=== PATIENT | female | born 1960 | race Caucasian/White ===

== ENCOUNTER 2016-06-23 23:09 | Inpatient (IN) | payer OTHER ==
[~2016-06-23] VITALS: Ht 124.5 cm; Wt 70.5 kg
[~2016-06-23 23:09] MED LIST: ACETAMINOPHEN325 M1 PO; ADULT LOW DOSE81 M1 PO; ADVAIR 250/501 DISK IH; ALTOPREV40 MG PO; AMLODIPINE BESY10 MG PO; APLISOL5 TUB UNIT ID; APRESOLINE100 MG PO; APRESOLINE50 MG PO; ASCORBIC ACID500 M3 PO; ASCORBIC ACID500 MG PO; ASPERCREME TP; ASPIR-LOW81 MG PO; ASPIRIN E.C.81 M1 PO; AUGMENTIN875 MG PO; AYR BABY SALINE30 ML BOTH NARES; AYR SALINE NA14.1 GM BOTH NARES; AYR50 ML BOTH NARES; AZITHROMYCIN250 MG1 PO; Apresoline PO; BACTRIM,SEPT1 TABLET PO; BISAC-EVAC10 MG PR; BUMETANIDE1 MG PO; BYSTOLIC10 MG PO; BYSTOLIC20 MG PO; BYSTOLIC5 MG PO; C COMPLEX500 MG PO; CALCITRIOL0.25 MCG PO; CALCIUM ACETAT667 MG PO; CARDURA4 MG PO; CARDURA8 MG PO; CATAPRES0.2 MG PO; CLINDAMYCIN HC300 MG PO; CLONIDINE HCL0.1 MG PO; CLONIDINE HCL0.2 MG PO; CLONIDINE HCL0.3 MG PO; CLONIDINE1 EAC1 TD; CLOPIDOGREL75 MG PO; COLACE100 MG PO; COLISTIMETHATE IV; COREG25 M1 PO; CRANBERRY405 MG PO; CUBICIN500 MG/10 IV; Cardura PO; Catapres PO; Coreg PO; DELTASONE20 M1 PO; DELTASONE20 MG PO; DIOVAN PO; DIOVAN160 MG PO; DIOVAN320 MG PO; DIOVAN80 MG PO; DITROPAN XL10 MG PO; DITROPAN XL5 MG PO; DITROPAN5 MG PO; DOCUSATE SODIU100 MG PO; DORIBAX250 MG IV; DOXAZOSIN MESYLA4 MG PO; DOXAZOSIN MESYLA8 MG PO; DOXYCYCLINE HY100 M3 PO; DOXYCYCLINE HY100 MG PO; DULCOLAX10 MG PR; DULERA 100 MCG/13 GM IH; DUONEB 2.5-0.5 M3 ML AEROSOL; DUONEB 2.5-0.5 M3 ML PEP; DURAGESIC50 MCG TD; Dilaudid PO; ENEMA133 M2 PR; EPOGEN,PRO4000 UNITS IV; ESOMEPRAZOLE MA40 MG PO; FENTANYL1 EAC1 TD; FENTANYL1 EAC5 TD; FLEET ENEMA-AD118 ML PR; FLEET MINERAL133 ML PR; FLORASTOR250 MG PO; FOLIC ACID1 MG PO; FULL SPECTRUM0.8 MG PO; FUROSEMIDE20 MG PO; FUROSEMIDE40 MG PO; FUROSEMIDE80 MG PO; GABAPENTIN300 MG PO; GLIPIZIDE10 M1 PO; GLUCAGON1 MG IM; GLUTOSE 1537.5 GM PO; Glucotrol PO; HEPARIN SO1000 UNIT1 INTRA-CATH; HEPARIN SO1000 UNIT1 IV; HEPARIN SO5000 UNITS SC; HUMULIN 50100 UNIT/1 SQ; HUMULIN N100 UNITS/ SC; HUMULIN N300 UNIT/3 SC; HUMULIN NP100 UNIT/1 SC; HYDRALAZINE HC100 MG PO; HYDRALAZINE HCL50 MG PO; INSULIN; Imdur PO; JANUVIA25 MG PO; KIONEX15 GM/60 M PO; LASIX40 MG PO; LASIX80 MG PO; LEVEMIR FL100 UNIT/1 SC; LEVEMIR100 UNIT/2 SC; LEVOFLOXACIN500 MG PO; LEXAPRO10 MG PO; LIDOCAINE700 MG TD; LINEZOLID-600 MG/300 IV; LINEZOLID600 MG PO; LIPITOR10 MG PO; LOPID600 MG PO; LOTREL 5/201 CAPSULE PO; LOVASTATIN40 MG PO; Levaquin PO; Lopid PO; MERREM500 MG IV; METRONIDAZOLE500 MG PO; MEVACOR40 MG PO; MIDODRINE HCL10 MG PO; MILK OF MAGN PO; MINITRAN1 EACH TD; MINOXIDIL10 MG PO; MIRALAX17 GM PO; MIRALAX255 GM PO; NEPHRO-VITE RX1 EACH PO; NEPHRO-VITE,1 TABLET PO; NEPHROCAPS SOFTG1 MG PO; NEURONTIN100 MG PO; NEURONTIN300 MG PO; NEXIUM40 MG PO; NITRO-DUR1 EAC1 TD; NITROGLYCERIN1 EAC1 TD; NORVASC10 MG PO; NOVOLIN N100 UNITS/ SC; NOVOLOG 10100 UNITS/ SC; NOVOLOG PE100 UNITS/ SC; Norvasc PO; OMEPRAZOLE40 M1 PO; ONDANSETRON HCL4 MG PO; ONDANSETRON4 MG/2 ML IV; OXYBUTYNIN CHLOR5 M1 PO; OXYCODONE HCL5 MG PO; OXYCODONE-ACET1 EACH PO; Omnicef PO; PANTOPRAZOLE SO40 MG PO; PLAVIX PO; PLAVIX75 MG PO; POLYETHYLENE GL17 GM PO; PRAVACHOL40 MG PO; PRAVASTATIN SOD40 MG PO; PREDNISONE10 MG PO; PREDNISONE20 MG PO; PREDNISONE5 MG PO; PROAIR HFA8.5 GM IH; PROCRIT10000 UNI1 IV; PROTONIX40 MG PO; RELADOR PAK PL1 EACH TP; RENAGEL800 MG PO; RENO CAPS SOFTGE1 MG PO; RENVELA2.4 GM PO; RENVELA800 MG PO; ROXICET 5-3251 EACH PO; ROXICODONE5 MG PO; Remove Lidoderm Patch TD; Rocaltrol PO; SALINE MIST45 ML BOTH NARES; SALINE NOSE SPR45 M1 BOTH NARES; SANTYL30 GM TP; SENEXON8.6 MG PO; SENNA LAX8.6 MG PO; SENNA LAXATIVE8.6 MG PO; SENNA S TABLET1 EACH PO; SENNA8.6 MG PO; SERTRALINE HCL50 MG PO; SINUS RELIEF15 ML BOTH NARES; SPIRIVA RESPIMAT4 GM IH; SPIRIVA1 INHALATI IH; SPIRONOLACTONE25 MG PO; Sodium Bicarbonate PO; TRADJENTA5 MG PO; TRAMADOL HCL50 MG PO; TYLENOL ARTHRI650 MG PO; TYLENOL REGULA325 MG PO; Tessalon Perle PO; VALSARTAN160 MG PO; VANICREAM113 GM TP; VENOFER100 MG/5 M IV; VIT D; VITAMIN C500 M1 PO; VITAMIN D-32000 UNI2 PO; VITAMIN D2000 INTUN PO; VITAMIN D2000 UNIT PO; VITAMIN D32000 UNI1 PO; VITAMIN D32000 UNIT PO; Vibramycin, Doryx PO; ZINC SULFATE220 M1 PO; ZYVOX600 MG PO; proair; proair hfa
[2016-06-24 00:29] LABS: INTER. NORMALIZED RATIO 1.1; PROTHROMBIN TIME 10.8 (9.2-11.2); PTT 25.7 (25-32)
[2016-06-24 00:31] LABS: EOSINOPHIL (%) 0.4 % (0-5); EOSINOPHIL COUNT 0.1 K/uL (0-0.3); HEMATOCRIT 37.7 % (36.0-46.0); IMMATURE GRANULOCYTE (%) 0.2 % (0.0-0.7); IMMATURE GRANULOCYTE COUNT 0.5 K/uL; LYMPHOCYTE COUNT 0.6 K/uL (1.0-2.8); MCH 29.3 PG (29.0-34.0); MCV 94.5 FL (83-99); MEAN PLAT.VOLUME 9.1 uM^3 (9.5-12.4); MONOCYTE COUNT 0.9 K/uL (0-0.8); NEUTROPHIL (%) 92.5 % (45-76); NEUTROPHIL COUNT 19.7 K/uL (1.8-6.4); PLATELET COUNT 246 K/uL (156-360); RBC DIS.WIDTH-SD 56.1 % (39-53); RED BLOOD COUNT 3.99 M/uL (3.80-5.20)
[2016-06-24 00:32] LABS: WHITE BLOOD COUNT 21.3 K/uL (4.1-10.2)
[2016-06-24 00:34] LABS: CHLORIDE 97 mEq/L (99-109); POTASSIUM 3.8 mEq/L (3.7-5.4); SODIUM 138 mEq/L (136-147)
[2016-06-24 00:36] LABS: GLUCOSE 206 mg/dL (70-99)
[2016-06-24 00:37] LABS: ANION GAP 17 MEQ/L (2-14)
[2016-06-24 00:37] LABS: BASE EXCESS 1.2 mEq/L (-3 to +3); COMMENTS - BLOOD GASES C+A+; METHEMOGLOBIN 0.9 % (0-1.5); O2 FLOW 25 L/MIN; PCO2 41 mm Hg (35-45); PO2 58 mm Hg (80-100); SITE RR; pH 7.41 (7.35-7.45)
[2016-06-24 00:38] LABS: TOTAL BILIRUBIN 0.5 mg/dL (0.0-1.0)
[2016-06-24 00:38] LABS: DEVICE HHFNC; FI02 50 %; TOTAL RESP RATE 20 resp/min
[2016-06-24 00:39] LABS: ALKALINE PHOSPHATASE 73 IU/L (3-129)
[2016-06-24 00:40] LABS: GFR ESTIMATE (CALCULATED) 13 mL/min/
[2016-06-24 00:41] LABS: TROP-I INTERPRETATION NEGATIVE; UREA NITROGEN (BUN) 44 mg/dL (9-23)
[2016-06-24 00:43] LABS: LIPASE 11 U/L (1.0-51.0)
[2016-06-24 03:03] VITALS: BP 151/66
[2016-06-24 09:00] VITALS: BP 134/40
[2016-06-24 11:21] LABS: POINT-OF-CARE METER ID UU14174216
[2016-06-24] MEDS ORDERED: LEVEMIR FL100 UNIT/1 SC (11:35)
[2016-06-24] MEDS ORDERED: PRILOSEC20 MG PO (11:38)
[2016-06-24] MEDS ORDERED: FLEET MINERAL133 ML PR (11:49)
[2016-06-24] MEDS ORDERED: NORCO 5/3251 TABLET PO (11:50)
[2016-06-24] MEDS ORDERED: ROBITUSSIN DM118 ML PO (11:51)
[2016-06-24 12:00] VITALS: BP 117/32
[2016-06-24 15:54] VITALS: BP 117/30
[2016-06-24 17:08] LABS: POINT-OF-CARE METER ID UU14174216
[2016-06-24 19:57] VITALS: BP 135/56
[2016-06-24 23:45] VITALS: BP 134/54
[2016-06-25 04:13] VITALS: BP 134/52
[2016-06-25 08:08] LABS: EOSINOPHIL COUNT 0.2 K/uL (0-0.3); HEMATOCRIT 30.8 % (36.0-46.0); IMMATURE GRANULOCYTE (%) 0.2 % (0.0-0.7); LYMPHOCYTE COUNT 1.3 K/uL (1.0-2.8); MCH 29.5 PG (29.0-34.0); MCHC 30.8 G/DL (30.0-36.0); MCV 95.7 FL (83-99); MONOCYTE (%) 3.9 % (3-12); MONOCYTE COUNT 0.3 K/uL (0-0.8); NEUTROPHIL (%) 78.1 % (45-76); NEUTROPHIL COUNT 6.3 K/uL (1.8-6.4); RBC DIS.WIDTH-CV 17.6 % (11.8-14.6); RBC DIS.WIDTH-SD 61.7 % (39-53); RED BLOOD COUNT 3.22 M/uL (3.80-5.20)
[2016-06-25 08:09] LABS: WHITE BLOOD COUNT 8.1 K/uL (4.1-10.2)
[2016-06-25 08:11] LABS: POINT-OF-CARE USER ID ENVKC36
[2016-06-25 08:11] LABS: ANION GAP 17 MEQ/L (2-14); CHLORIDE 95 MEQ/L (99-109); POTASSIUM 3.9 MEQ/L (3.7-5.4); SAMPLE HEMOLYSIS CHECK 0; SAMPLE ICTERIC CHECK 0; SAMPLE LIPEMIA CHECK 0; SODIUM 137 MEQ/L (136-147)
[2016-06-25 08:17] LABS: GFR ESTIMATE (CALCULATED) 9 mL/min/; GLUCOSE 217 mg/dL (70-99); UREA NITROGEN (BUN) 62 mg/dL (9-23)
[2016-06-25 09:59] LABS: PLAT.SUFFICIENCY ADEQUATE; PLATELET COUNT UNABLE TO REPORT K/uL (156-360)
[2016-06-25 11:35] VITALS: BP 129/32
[2016-06-25 12:02] LABS: POINT-OF-CARE METER ID UU13113781; POINT-OF-CARE USER ID ENVKC36
[2016-06-25 16:11] VITALS: BP 125/32
[2016-06-25 16:37] LABS: POINT-OF-CARE USER ID ENVKC36
[2016-06-25 19:20] VITALS: BP 142/40
[2016-06-26 00:27] VITALS: BP 133/863
[2016-06-26 03:50] VITALS: BP 130/40
[2016-06-26 08:17] LABS: POINT-OF-CARE USER ID ENVKC36
[2016-06-26] MEDS ORDERED: GENTAMICIN40 MG/1 ML IV (08:22)
[2016-06-26] MEDS ORDERED: LINEZOLID600 MG PO (08:22)
[2016-06-26 08:40] VITALS: BP 152/40
== END 2016-06-26 11:45 | DRG 193 ==
LOC: EME → EDBD 23:09 → EME 23:09 → EDOF 06-24 01:04 → 4EAST 06-24 01:04
PROVIDERS: Emergency Medicine; Internal Medicine; Internal Medicine Nephrology
DX: J18.9 Pneumonia, unspecified organism (principal); N18.6 End stage renal disease; I12.0 Hypertensive chronic kidney disease with stage 5 chronic kidney disease or end stage renal disease; I50.30 Unspecified diastolic (congestive) heart failure; J44.1 Chronic obstructive pulmonary disease with (acute) exacerbation; I42.9 Cardiomyopathy, unspecified; G82.20 Paraplegia, unspecified; L89.159 Pressure ulcer of sacral region, unspecified stage; E11.65 Type 2 diabetes mellitus with hyperglycemia; D72.829 Elevated white blood cell count, unspecified; I73.9 Peripheral vascular disease, unspecified; F17.210 Nicotine dependence, cigarettes, uncomplicated; D63.1 Anemia in chronic kidney disease; K21.9 Gastro-esophageal reflux disease without esophagitis; Z89.612 Acquired absence of left leg above knee; Z89.611 Acquired absence of right leg above knee; Z90.49 Acquired absence of other specified parts of digestive tract; E83.39 Other disorders of phosphorus metabolism; Z79.01 Long term (current) use of anticoagulants
CPT/HCPCS: 36600; 71010; 80053; 80069; 80170; 81003; 82803; 82948; 83605; 83690; 84484; 85025; 85027; 85610; 85730; 87040; 93005; 94640; 94640 76; 94799; 99202; 99281; 99285; J1580; J1644; J1815; J2020; J2185; J7050

== ENCOUNTER 2016-07-14 20:33 | Inpatient (IN) | payer OTHER ==
[~2016-07-14] VITALS: Ht 121.9 cm; Wt 68.9 kg
[~2016-07-14 20:33] MED LIST changes: +GENTAMICIN40 MG/1 ML IV; +NORCO 5/3251 TABLET PO; +PRILOSEC20 MG PO; +ROBITUSSIN DM118 ML PO
[2016-07-14 21:59] LABS: EOSINOPHIL COUNT 0.1 K/uL (0-0.3); HEMATOCRIT 36.3 % (36.0-46.0); LYMPHOCYTE COUNT 1.2 K/uL (1.0-2.8); MCH 30.8 PG (29.0-34.0); MCHC 32.2 G/DL (30.0-36.0); MCV 95.5 FL (83-99); MEAN PLAT.VOLUME 8.6 uM^3 (9.5-12.4); MONOCYTE (%) 3.7 % (3-12); MONOCYTE COUNT 0.5 K/uL (0-0.8); NEUTROPHIL (%) 85.3 % (45-76); NEUTROPHIL COUNT 10.6 K/uL (1.8-6.4); PLATELET COUNT 211 K/uL (156-360); RBC DIS.WIDTH-CV 17.9 % (11.8-14.6); WHITE BLOOD COUNT 12.4 K/uL (4.1-10.2)
[2016-07-14 22:06] LABS: CHLORIDE 95 mEq/L (99-109); POTASSIUM 3.9 mEq/L (3.7-5.4); SODIUM 139 mEq/L (136-147)
[2016-07-14 22:08] LABS: GLUCOSE 180 mg/dL (70-99)
[2016-07-14 22:09] LABS: ANION GAP 15 MEQ/L (2-14)
[2016-07-14 22:12] LABS: GFR ESTIMATE (CALCULATED) 13 mL/min/; UREA NITROGEN (BUN) 39 mg/dL (9-23)
[2016-07-14 22:22] LABS: INFLUENZA A VIRAL ANTIGEN NEGATIVE; INFLUENZA B VIRAL ANTIGEN NEGATIVE
[2016-07-14] MEDS ORDERED: AYR50 ML BOTH NARES (23:38)
[2016-07-14] MEDS ORDERED: BENADRYL ITCH28.3 GM TP (23:39)
[2016-07-15 02:44] VITALS: BP 143/63
[2016-07-15 07:45] VITALS: BP 163/13
[2016-07-15 11:50] VITALS: BP 129/57
[2016-07-15 15:15] VITALS: BP 134/51
[2016-07-15 19:06] VITALS: BP 131/62
[2016-07-15 23:56] VITALS: BP 127/56
[2016-07-16 03:46] VITALS: BP 125/58
[2016-07-16 08:28] LABS: HEMATOCRIT 30.4 % (36.0-46.0); MCH 30.1 PG (29.0-34.0); MCHC 31.3 G/DL (30.0-36.0); MCV 96.2 FL (83-99); MEAN PLAT.VOLUME 9.4 uM^3 (9.5-12.4); PLATELET COUNT 180 K/uL (156-360); RBC DIS.WIDTH-CV 17.9 % (11.8-14.6); RBC DIS.WIDTH-SD 63.1 % (39-53); RED BLOOD COUNT 3.16 M/uL (3.80-5.20); WHITE BLOOD COUNT 10.6 K/uL (4.1-10.2)
[2016-07-16 08:41] LABS: ANION GAP 14 MEQ/L (2-14); CHLORIDE 94 MEQ/L (99-109); POTASSIUM 4.1 MEQ/L (3.7-5.4); SAMPLE HEMOLYSIS CHECK 0; SAMPLE ICTERIC CHECK 0; SAMPLE LIPEMIA CHECK 0; SODIUM 136 MEQ/L (136-147)
[2016-07-16 08:46] LABS: GFR ESTIMATE (CALCULATED) 9 mL/min/; GLUCOSE 242 mg/dL (70-99)
[2016-07-16 08:48] LABS: UREA NITROGEN (BUN) 75 mg/dL (9-23)
[2016-07-16 19:37] VITALS: BP 130/61
[2016-07-16 23:19] VITALS: BP 136/68
[2016-07-17 04:25] VITALS: BP 143/60
[2016-07-17 07:30] VITALS: BP 136/55
[2016-07-17 10:35] VITALS: BP 126/54
[2016-07-17] MEDS ORDERED: DOXYCYCLINE HY100 M3 PO (11:14)
== END 2016-07-17 14:31 | DRG 682 ==
LOC: EME → EDBD 20:33 → 2EAST 07-15 00:48 → EDOF 07-15 00:48 → 2EAST 07-15 02:24
PROVIDERS: Emergency Medicine; Internal Medicine
DX: N18.6 End stage renal disease (principal); J18.9 Pneumonia, unspecified organism; L89.154 Pressure ulcer of sacral region, stage 4; I13.2 Hypertensive heart and chronic kidney disease with heart failure and with stage 5 chronic kidney disease, or end stage renal disease; N25.81 Secondary hyperparathyroidism of renal origin; I12.0 Hypertensive chronic kidney disease with stage 5 chronic kidney disease or end stage renal disease; E11.22 Type 2 diabetes mellitus with diabetic chronic kidney disease; G82.20 Paraplegia, unspecified; E11.40 Type 2 diabetes mellitus with diabetic neuropathy, unspecified; E11.319 Type 2 diabetes mellitus with unspecified diabetic retinopathy without macular edema; E11.21 Type 2 diabetes mellitus with diabetic nephropathy; D63.1 Anemia in chronic kidney disease; J44.9 Chronic obstructive pulmonary disease, unspecified; D72.829 Elevated white blood cell count, unspecified; I73.9 Peripheral vascular disease, unspecified; Z90.49 Acquired absence of other specified parts of digestive tract; I25.10 Atherosclerotic heart disease of native coronary artery without angina pectoris; F41.9 Anxiety disorder, unspecified; F32.9 Major depressive disorder, single episode, unspecified; Z68.42 Body mass index [BMI] 45.0-49.9, adult; N83.9 Noninflammatory disorder of ovary, fallopian tube and broad ligament, unspecified; I25.2 Old myocardial infarction; Z79.4 Long term (current) use of insulin; Z99.2 Dependence on renal dialysis; Z87.440 Personal history of urinary (tract) infections; Z89.512 Acquired absence of left leg below knee; Z89.511 Acquired absence of right leg below knee
CPT/HCPCS: 71010; 74176; 80048; 80069; 82948; 83605; 85025; 85027; 87040; 87502; 94640; 94640 76; 94799; 99202; 99281; 99285; J1756; J1815; J2020; J2920; J3243; J7050; J7512; S0073

== ENCOUNTER 2016-08-20 14:00 | Inpatient (IN) | payer OTHER ==
[~2016-08-20] VITALS: Ht 144.8 cm; Wt 100.1 kg
[~2016-08-20 14:00] MED LIST changes: +BENADRYL ITCH28.3 GM TP
[2016-08-20 14:47] LABS: BASOPHIL COUNT 0.1 K/uL (0-0.1); EOSINOPHIL (%) 0.8 % (0-5); EOSINOPHIL COUNT 0.1 K/uL (0-0.3); IMMATURE GRANULOCYTE (%) 0.5 % (0.0-0.7); IMMATURE GRANULOCYTE COUNT 0.1 K/uL; INSTRUMENT ABS NEUTROPHIL CT 7.9 K/uL; LYMPHOCYTE COUNT 1.5 K/uL (1.0-2.8); MCH 30.9 PG (29.0-34.0); MCHC 31.9 G/DL (30.0-36.0); MEAN PLAT.VOLUME 8.7 uM^3 (9.5-12.4); MONOCYTE (%) 6.6 % (3-12); MONOCYTE COUNT 0.7 K/uL (0-0.8); NEUTROPHIL (%) 76.9 % (45-76); NEUTROPHIL COUNT 7.9 K/uL (1.8-6.4); NRBC (%) 0.2 /100 WBC (0-0); PLATELET COUNT 263 K/uL (156-360); RBC DIS.WIDTH-CV 15.8 % (11.8-14.6); RBC DIS.WIDTH-SD 55.7 % (39-53); WHITE BLOOD COUNT 10.2 K/uL (4.1-10.2)
[2016-08-20 14:55] LABS: CHLORIDE 100 mEq/L (99-109); POTASSIUM 3.2 mEq/L (3.7-5.4); SODIUM 141 mEq/L (136-147)
[2016-08-20 14:57] LABS: GLUCOSE 244 mg/dL (70-99)
[2016-08-20 14:58] LABS: ANION GAP 14 MEQ/L (2-14)
[2016-08-20 14:59] LABS: INTER. NORMALIZED RATIO 1.1; PROTHROMBIN TIME 10.7 (9.2-11.2); PTT 27.1 (25-32)
[2016-08-20 15:01] LABS: GFR ESTIMATE (CALCULATED) 13 mL/min/
[2016-08-20 15:02] LABS: UREA NITROGEN (BUN) 40 mg/dL (9-23)
[2016-08-20] MEDS ORDERED: RENVELA800 MG PO (15:48)
[2016-08-20] MEDS ORDERED: NOVOLOG PE100 UNITS/ SC (15:49)
[2016-08-20] MEDS ORDERED: OXYCODONE HCL5 MG PO (15:52)
[2016-08-20 16:00] LABS: HDL CHOLESTEROL 28 MG/DL (Desirable>=50); LDL CHOLESTEROL 22 mg/dL (Desirable<100); NON-HDL CHOLESTEROL 60 mg/dL (Desirable<160); TOTAL CHOLESTEROL 88 mg/dL (Desirable<200); TRIGLYCERIDES 192 MG/DL (Normal: <150)
[2016-08-20 16:08] LABS: TROP-I INTERPRETATION NEGATIVE; TROPONIN-I 0.21 ng/mL (0.0-0.30)
[2016-08-20 17:27] LABS: Estimated Average Glucose 108 mg/dL (70-123); HEMOGLOBIN A1c (GLYCOHEMOGLOB) 5.4 % HGB (Below 5.7)
[2016-08-20 21:47] LABS: POINT-OF-CARE METER ID UU14174225
[2016-08-20 22:00] VITALS: BP 151/66
[2016-08-21] VITALS: BP 151/53
[2016-08-21 04:00] VITALS: BP 145/67
[2016-08-21 08:15] VITALS: BP 148/64
[2016-08-21 17:32] LABS: POINT-OF-CARE METER ID UU14174225
[2016-08-21 19:40] VITALS: BP 125/70
[2016-08-21 20:47] LABS: POINT-OF-CARE METER ID UU14174225
[2016-08-22 00:22] VITALS: BP 132/46
[2016-08-22 04:08] VITALS: BP 146/57
[2016-08-22 11:16] LABS: ANION GAP 16 MEQ/L (2-14); CHLORIDE 100 MEQ/L (99-109); GFR ESTIMATE (CALCULATED) 9 mL/min/; GLUCOSE 169 mg/dL (70-99); POTASSIUM 4.4 MEQ/L (3.7-5.4); SAMPLE HEMOLYSIS CHECK 0; SAMPLE ICTERIC CHECK 0; SAMPLE LIPEMIA CHECK 0; SODIUM 142 MEQ/L (136-147); UREA NITROGEN (BUN) 65 mg/dL (9-23)
[2016-08-22 11:30] LABS: HEMATOCRIT 31.8 % (36.0-46.0); MCH 30.6 PG (29.0-34.0); MCHC 30.8 G/DL (30.0-36.0); MCV 99.4 FL (83-99); PLATELET COUNT 308 K/uL (156-360); RBC DIS.WIDTH-CV 16.2 % (11.8-14.6); RBC DIS.WIDTH-SD 58.2 % (39-53); WHITE BLOOD COUNT 9.8 K/uL (4.1-10.2)
[2016-08-22 16:08] VITALS: BP 166/66
[2016-08-22 20:00] VITALS: BP 110/63
[2016-08-22 21:38] LABS: POINT-OF-CARE METER ID UU14174225
[2016-08-23 04:00] VITALS: BP 120/56
[2016-08-23 08:55] VITALS: BP 121/38
[2016-08-23 09:06] LABS: POINT-OF-CARE USER ID 606021404
[2016-08-23 11:30] VITALS: BP 90/36
[2016-08-23 11:39] LABS: POINT-OF-CARE USER ID 606021404
[2016-08-23 15:08] VITALS: BP 132/71
[2016-08-23 17:33] VITALS: BP 110/58
[2016-08-23 20:00] VITALS: BP 175/74
[2016-08-24] VITALS: BP 147/65
[2016-08-24 04:00] VITALS: BP 175/75
[2016-08-24 08:37] VITALS: BP 132/80
[2016-08-24 08:47] LABS: MCH 30.7 PG (29.0-34.0); MCHC 31.5 G/DL (30.0-36.0); MCV 97.4 FL (83-99); MEAN PLAT.VOLUME 8.4 uM^3 (9.5-12.4); PLATELET COUNT 305 K/uL (156-360); RBC DIS.WIDTH-CV 16.4 % (11.8-14.6); RBC DIS.WIDTH-SD 57.6 % (39-53); RED BLOOD COUNT 3.49 M/uL (3.80-5.20)
[2016-08-24 09:08] LABS: ANION GAP 15 MEQ/L (2-14); CHLORIDE 98 MEQ/L (99-109); GFR ESTIMATE (CALCULATED) 11 mL/min/; POTASSIUM 4.8 MEQ/L (3.7-5.4); SAMPLE HEMOLYSIS CHECK 0; SAMPLE ICTERIC CHECK 0; SAMPLE LIPEMIA CHECK 0; SODIUM 137 MEQ/L (136-147); UREA NITROGEN (BUN) 46 mg/dL (9-23)
[2016-08-24 09:09] LABS: GLUCOSE 112 mg/dL (70-99)
[2016-08-24 12:47] VITALS: BP 142/54
[2016-08-24 15:54] VITALS: BP 140/66
[2016-08-24 19:39] VITALS: BP 128/63
[2016-08-25] VITALS: BP 120/53
[2016-08-25 03:33] VITALS: BP 151/62
[2016-08-25 07:46] LABS: POINT-OF-CARE METER ID UU14174225
[2016-08-25 07:53] VITALS: BP 136/58
[2016-08-25 11:25] VITALS: BP 117/53
[2016-08-25 15:30] VITALS: BP 139/61
[2016-08-25 19:27] VITALS: BP 128/57
[2016-08-26 00:17] VITALS: BP 128/57
[2016-08-26 04:00] VITALS: BP 121/63
[2016-08-26 07:48] LABS: POINT-OF-CARE METER ID UU14174225
[2016-08-26 07:53] VITALS: BP 123/64
[2016-08-26 12:41] VITALS: BP 126/62
[2016-08-26 16:02] VITALS: BP 110/60
[2016-08-26 17:45] LABS: POINT-OF-CARE METER ID UU14188625
[2016-08-26] MEDS ORDERED: HYDRALAZINE HCL25 MG PO (18:01)
[2016-08-26] MEDS ORDERED: LO-DOSE ASPIRIN81 M2 PO (18:01)
[2016-08-26] MEDS ORDERED: VALSARTAN80 MG PO (18:01)
[2016-08-26] MEDS ORDERED: BYSTOLIC10 MG PO (18:02)
[2016-08-26 20:59] VITALS: BP 162/70
[2016-08-26 21:17] LABS: POINT-OF-CARE METER ID UU14188625
== END 2016-08-26 21:13 | DRG 64 ==
LOC: EME 14:00 → EDOF 17:00 → 5SOUTH 17:00
PROVIDERS: Emergency Medicine; Internal Medicine
PROC: 5A1D60Z (ICD-10-PCS; principal; 2016-08-22)
DX: I63.133 Cerebral infarction due to embolism of bilateral carotid arteries (principal); L89.154 Pressure ulcer of sacral region, stage 4; N18.6 End stage renal disease; I12.0 Hypertensive chronic kidney disease with stage 5 chronic kidney disease or end stage renal disease; N25.81 Secondary hyperparathyroidism of renal origin; I69.351 Hemiplegia and hemiparesis following cerebral infarction affecting right dominant side; F33.9 Major depressive disorder, recurrent, unspecified; J96.11 Chronic respiratory failure with hypoxia; G82.20 Paraplegia, unspecified; J98.11 Atelectasis; E11.22 Type 2 diabetes mellitus with diabetic chronic kidney disease; M54.12 Radiculopathy, cervical region; I27.2 Other secondary pulmonary hypertension; D63.1 Anemia in chronic kidney disease; M47.892 Other spondylosis, cervical region; N31.9 Neuromuscular dysfunction of bladder, unspecified; J44.9 Chronic obstructive pulmonary disease, unspecified; E83.39 Other disorders of phosphorus metabolism; J84.10 Pulmonary fibrosis, unspecified; E04.1 Nontoxic single thyroid nodule; E87.6 Hypokalemia; K21.9 Gastro-esophageal reflux disease without esophagitis; I36.1 Nonrheumatic tricuspid (valve) insufficiency; I34.0 Nonrheumatic mitral (valve) insufficiency; R13.10 Dysphagia, unspecified; Z99.81 Dependence on supplemental oxygen; Z89.611 Acquired absence of right leg above knee; I69.391 Dysphagia following cerebral infarction; Z89.612 Acquired absence of left leg above knee; Z91.041 Radiographic dye allergy status; Z99.2 Dependence on renal dialysis; Z87.891 Personal history of nicotine dependence; Z79.4 Long term (current) use of insulin; Z79.01 Long term (current) use of anticoagulants; Z98.62 Peripheral vascular angioplasty status; Z86.14 Personal history of Methicillin resistant Staphylococcus aureus infection
CPT/HCPCS: 70450; 70551; 71010; 72141; 80048; 80061; 80069; 82948; 83036; 84484; 85025; 85027; 85610; 85730; 93005; 93306; 93880; 94640; 94640 76; 94760; 94799; 99202; 99281; 99285; J0881; J1644; J1815; J7030

== ENCOUNTER → 2016-09-04 | Outpatient (CLI) | payer OTHER ==
[~2016-09-04] MED LIST changes: +ANORO ELLIPTA1 EACH IH; +HUMALOG100 UNIT/1 SC; +HYDRALAZINE HCL25 MG PO; +LO-DOSE ASPIRIN81 M2 PO; +LONITEN10 MG PO; +LOSARTAN POTASS50 MG PO; +VALSARTAN80 MG PO
== END ==
LOC: MRI 10:29 → RAD 11:00 → MRI 11:00
DX: I63.133 Cerebral infarction due to embolism of bilateral carotid arteries (principal)
CPT/HCPCS: 70547

== ENCOUNTER 2016-09-07 19:29 | Observation (INO) | payer OTHER ==
[~2016-09-07] VITALS: Ht 144.8 cm; Wt 59.6 kg
[~2016-09-07 19:29] MED LIST changes: -ANORO ELLIPTA1 EACH IH; -HUMALOG100 UNIT/1 SC; -LONITEN10 MG PO; -LOSARTAN POTASS50 MG PO
[2016-09-07 20:15] LABS: HEMATOCRIT 36.3 % (36.0-46.0); MCH 30.5 PG (29.0-34.0); MCHC 31.1 G/DL (30.0-36.0); MCV 97.8 FL (83-99); MEAN PLAT.VOLUME 8.6 uM^3 (9.5-12.4); PLATELET COUNT 306 K/uL (156-360); RBC DIS.WIDTH-CV 16.7 % (11.8-14.6); RBC DIS.WIDTH-SD 59.1 % (39-53); RED BLOOD COUNT 3.71 M/uL (3.80-5.20); WHITE BLOOD COUNT 11.4 K/uL (4.1-10.2)
[2016-09-07 20:24] LABS: CHLORIDE 97 mEq/L (99-109); POTASSIUM 2.7 mEq/L (3.7-5.4); SODIUM 139 mEq/L (136-147)
[2016-09-07 20:25] LABS: GLUCOSE 218 mg/dL (70-99)
[2016-09-07 20:27] LABS: ANION GAP 15 MEQ/L (2-14)
[2016-09-07 20:29] LABS: GFR ESTIMATE (CALCULATED) 20 mL/min/
[2016-09-07 20:30] LABS: UREA NITROGEN (BUN) 20 mg/dL (9-23)
[2016-09-07 20:37] LABS: TROP-I INTERPRETATION NEGATIVE; TROPONIN-I 0.15 ng/mL (0.0-0.30)
[2016-09-07] MEDS ORDERED: LO-DOSE ASPIRIN81 M2 PO (23:15)
[2016-09-07] MEDS ORDERED: ANORO ELLIPTA1 EACH IH (23:15)
[2016-09-07] MEDS ORDERED: LOSARTAN POTASS50 MG PO (23:16)
[2016-09-07] MEDS ORDERED: BYSTOLIC10 MG PO (23:17)
[2016-09-07] MEDS ORDERED: LONITEN10 MG PO (23:19)
[2016-09-07] MEDS ORDERED: HYDRALAZINE HCL25 MG PO (23:20)
[2016-09-07] MEDS ORDERED: HUMALOG100 UNIT/1 SC (23:21)
[2016-09-08 02:18] LABS: TROP-I INTERPRETATION NEGATIVE; TROPONIN-I 0.19 ng/mL (0.0-0.30)
[2016-09-08 02:23] LABS: HDL CHOLESTEROL 25 MG/DL (Desirable>=50); LDL CHOLESTEROL 31 mg/dL (Desirable<100); NON-HDL CHOLESTEROL 65 mg/dL (Desirable<160); TOTAL CHOLESTEROL 90 mg/dL (Desirable<200); TRIGLYCERIDES 171 MG/DL (Normal: <150)
[2016-09-08 09:50] LABS: TROP-I INTERPRETATION NEGATIVE; TROPONIN-I 0.21 ng/mL (0.0-0.30)
[2016-09-08 11:15] LABS: CHLORIDE 98 mEq/L (99-109); SODIUM 140 mEq/L (136-147)
[2016-09-08 11:17] LABS: GLUCOSE 128 mg/dL (70-99)
[2016-09-08 11:18] LABS: ANION GAP 16 MEQ/L (2-14)
[2016-09-08 11:22] LABS: UREA NITROGEN (BUN) 24 mg/dL (9-23)
[2016-09-08 11:25] LABS: GFR ESTIMATE (CALCULATED) 16 mL/min/; POTASSIUM 3.4 mEq/L (3.7-5.4)
[2016-09-08 15:07] VITALS: BP 160/64
== END 2016-09-08 16:42 ==
LOC: EME → EDBD 19:29 → EDOF 09-08 00:13
PROVIDERS: Physician Assistant Medical
DX: R07.89 Other chest pain (principal); I13.2 Hypertensive heart and chronic kidney disease with heart failure and with stage 5 chronic kidney disease, or end stage renal disease; N18.6 End stage renal disease; I50.9 Heart failure, unspecified; I65.29 Occlusion and stenosis of unspecified carotid artery; E87.6 Hypokalemia; Z99.81 Dependence on supplemental oxygen; G82.20 Paraplegia, unspecified; L89.304 Pressure ulcer of unspecified buttock, stage 4; L89.154 Pressure ulcer of sacral region, stage 4; J44.9 Chronic obstructive pulmonary disease, unspecified; J45.909 Unspecified asthma, uncomplicated; E78.5 Hyperlipidemia, unspecified; E11.9 Type 2 diabetes mellitus without complications; Z87.891 Personal history of nicotine dependence; Z99.2 Dependence on renal dialysis; I73.9 Peripheral vascular disease, unspecified; Z86.73 Personal history of transient ischemic attack (TIA), and cerebral infarction without residual deficits; Z89.611 Acquired absence of right leg above knee; Z89.612 Acquired absence of left leg above knee; D63.1 Anemia in chronic kidney disease; N25.81 Secondary hyperparathyroidism of renal origin; Z86.14 Personal history of Methicillin resistant Staphylococcus aureus infection; K21.9 Gastro-esophageal reflux disease without esophagitis; N31.9 Neuromuscular dysfunction of bladder, unspecified
CPT/HCPCS: 71020; 80048; 80061; 84484; 85027; 93005; 94640; 94799; 99202; 99281; 99285; G0378; J1644

== ENCOUNTER 2016-09-09 00:48 | Observation (INO) | payer OTHER ==
[~2016-09-09] VITALS: Ht 144.8 cm; Wt 63.9 kg
[~2016-09-09 00:48] MED LIST changes: +ANORO ELLIPTA1 EACH IH; +HUMALOG100 UNIT/1 SC; +LONITEN10 MG PO; +LOSARTAN POTASS50 MG PO
[2016-09-09 01:33] LABS: HEMATOCRIT 33.2 % (36.0-46.0); MCH 30.3 PG (29.0-34.0); MCHC 30.4 G/DL (30.0-36.0); MCV 99.7 FL (83-99); MEAN PLAT.VOLUME 8.8 uM^3 (9.5-12.4); PLATELET COUNT 371 K/uL (156-360); RBC DIS.WIDTH-CV 16.5 % (11.8-14.6); RBC DIS.WIDTH-SD 60.2 % (39-53); RED BLOOD COUNT 3.33 M/uL (3.80-5.20); WHITE BLOOD COUNT 12.9 K/uL (4.1-10.2)
[2016-09-09 01:45] LABS: CHLORIDE 99 mEq/L (99-109); POTASSIUM 3.7 mEq/L (3.7-5.4); SODIUM 143 mEq/L (136-147)
[2016-09-09 01:48] LABS: ANION GAP 18 MEQ/L (2-14)
[2016-09-09 01:50] LABS: GFR ESTIMATE (CALCULATED) 12 mL/min/
[2016-09-09 01:51] LABS: UREA NITROGEN (BUN) 36 mg/dL (9-23)
[2016-09-09 01:52] LABS: GLUCOSE 262 mg/dL (70-99)
[2016-09-09 01:54] LABS: TROP-I INTERPRETATION NEGATIVE; TROPONIN-I 0.16 ng/mL (0.0-0.30)
[2016-09-09 05:38] VITALS: BP 145/62
[2016-09-09 09:05] LABS: POINT-OF-CARE METER ID UU13113831
[2016-09-09 10:19] LABS: TROP-I INTERPRETATION NEGATIVE; TROPONIN-I 0.15 ng/mL (0.0-0.30)
[2016-09-09 12:12] VITALS: BP 115/57
[2016-09-09 12:33] LABS: POINT-OF-CARE METER ID UU13113831
[2016-09-09 14:32] LABS: TROP-I INTERPRETATION NEGATIVE; TROPONIN-I 0.19 ng/mL (0.0-0.30)
[2016-09-09 17:21] VITALS: BP 192/82
[2016-09-09 18:04] LABS: POINT-OF-CARE METER ID UU13113831
[2016-09-09 19:52] LABS: POINT-OF-CARE METER ID UU13113831
[2016-09-09 20:00] VITALS: BP 177/53
[2016-09-09 21:47] LABS: POINT-OF-CARE METER ID UU14162513
[2016-09-09 23:30] VITALS: BP 115/52
[2016-09-10 04:00] VITALS: BP 122/51
[2016-09-10 07:31] LABS: POINT-OF-CARE METER ID UU13113700
[2016-09-10 10:00] LABS: HEMATOCRIT 27.6 % (36.0-46.0); MCH 30.4 PG (29.0-34.0); MCHC 30.4 G/DL (30.0-36.0); MEAN PLAT.VOLUME 8.8 uM^3 (9.5-12.4); PLATELET COUNT 266 K/uL (156-360); RBC DIS.WIDTH-CV 16.9 % (11.8-14.6); RBC DIS.WIDTH-SD 60.9 % (39-53); RED BLOOD COUNT 2.76 M/uL (3.80-5.20); WHITE BLOOD COUNT 10.3 K/uL (4.1-10.2)
[2016-09-10 10:18] LABS: ANION GAP 17 MEQ/L (2-14); CHLORIDE 101 MEQ/L (99-109); SAMPLE HEMOLYSIS CHECK 0; SAMPLE ICTERIC CHECK 0; SAMPLE LIPEMIA CHECK 0; SODIUM 141 MEQ/L (136-147); TOTAL BILIRUBIN 0.3 MG/DL (0.0-1.0)
[2016-09-10 10:21] LABS: POTASSIUM 4.5 MEQ/L (3.7-5.4)
[2016-09-10 10:24] LABS: ALKALINE PHOSPHATASE 63 IU/L (3-129); GFR ESTIMATE (CALCULATED) 8 mL/min/; GLUCOSE 221 mg/dL (70-99); UREA NITROGEN (BUN) 54 mg/dL (9-23)
[2016-09-10] MEDS ORDERED: ALPRAZOLAM0.25 M2 PO (13:56)
[2016-09-10 15:32] VITALS: BP 133/54
[2016-09-11 10:48] LABS: HBSG INDEX 0.16
== END 2016-09-10 16:26 ==
LOC: EME → EDBD 00:48 → EDOF 04:14 → 5WEST 04:14 → EDOF 04:14 → 5WEST 05:17
PROVIDERS: Hospitalist; Internal Medicine
PROC: 5A1D00Z (ICD-10-PCS; principal; 2016-09-10)
DX: R07.89 Other chest pain (principal); L89.154 Pressure ulcer of sacral region, stage 4; L89.314 Pressure ulcer of right buttock, stage 4; L89.324 Pressure ulcer of left buttock, stage 4; I13.2 Hypertensive heart and chronic kidney disease with heart failure and with stage 5 chronic kidney disease, or end stage renal disease; N18.6 End stage renal disease; I50.9 Heart failure, unspecified; J98.11 Atelectasis; Z99.2 Dependence on renal dialysis; I73.9 Peripheral vascular disease, unspecified; Z89.611 Acquired absence of right leg above knee; Z89.612 Acquired absence of left leg above knee; Z86.73 Personal history of transient ischemic attack (TIA), and cerebral infarction without residual deficits; E11.9 Type 2 diabetes mellitus without complications; E78.5 Hyperlipidemia, unspecified; Z87.891 Personal history of nicotine dependence; E78.00 Pure hypercholesterolemia, unspecified; J96.10 Chronic respiratory failure, unspecified whether with hypoxia or hypercapnia; D63.8 Anemia in other chronic diseases classified elsewhere; G82.20 Paraplegia, unspecified
CPT/HCPCS: 71020; 78582; 80048; 80053; 81003; 82948; 84484; 85027; 87340; 93005; 94799; 99202; 99281; 99285; A9567; G0257; G0378; J1815; J7030

== ENCOUNTER 2016-10-17 11:18 | Observation (INO) | payer OTHER ==
[~2016-10-17] VITALS: Ht 147.3 cm; Wt 56.3 kg
[~2016-10-17 11:18] MED LIST changes: +ALPRAZOLAM0.25 M2 PO; +COZAAR50 MG PO; +ZOFRAN4 MG PO; +ZOLOFT25 MG PO
[2016-10-17] MEDS ORDERED: PERCOCET 10/1 TABLET PO (12:08)
[2016-10-17 12:12] LABS: EOSINOPHIL (%) 1.3 % (0-5); EOSINOPHIL COUNT 0.1 K/uL (0-0.3); IMMATURE GRANULOCYTE (%) 0.7 % (0.0-0.7); IMMATURE GRANULOCYTE COUNT 0.1 K/uL; INSTRUMENT ABS NEUTROPHIL CT 5.5 K/uL; LYMPHOCYTE COUNT 2.1 K/uL (1.0-2.8); MCHC 29.1 G/DL (30.0-36.0); MCV 99.6 FL (83-99); MEAN PLAT.VOLUME 8.8 uM^3 (9.5-12.4); MONOCYTE (%) 5.5 % (3-12); MONOCYTE COUNT 0.5 K/uL (0-0.8); NEUTROPHIL (%) 66.9 % (45-76); NEUTROPHIL COUNT 5.5 K/uL (1.8-6.4); PLATELET COUNT 298 K/uL (156-360); RBC DIS.WIDTH-CV 17.2 % (11.8-14.6); RBC DIS.WIDTH-SD 62.9 % (39-53); RED BLOOD COUNT 2.31 M/uL (3.80-5.20); WHITE BLOOD COUNT 8.2 K/uL (4.1-10.2)
[2016-10-17 12:15] LABS: CHLORIDE 101 mEq/L (99-109); POTASSIUM 4.6 mEq/L (3.7-5.4); SODIUM 141 mEq/L (136-147)
[2016-10-17 12:17] LABS: GLUCOSE 90 mg/dL (70-99)
[2016-10-17 12:18] LABS: ANION GAP 11 MEQ/L (2-14)
[2016-10-17 12:21] LABS: GFR ESTIMATE (CALCULATED) 15 mL/min/
[2016-10-17 12:22] LABS: UREA NITROGEN (BUN) 37 mg/dL (9-23)
[2016-10-17 12:25] LABS: INTER. NORMALIZED RATIO 1.1; PROTHROMBIN TIME 11.1 (9.2-11.2)
[2016-10-17] MEDS ORDERED: ANORO ELLIPTA1 EACH IH (14:48)
[2016-10-17] MEDS ORDERED: LO-DOSE ASPIRIN81 M2 PO (14:49)
[2016-10-17] MEDS ORDERED: ATORVASTATIN CA10 MG PO (14:49)
[2016-10-17] MEDS ORDERED: GABAPENTIN300 MG PO (14:50)
[2016-10-17] MEDS ORDERED: LEVEMIR FL100 UNIT/1 SC (14:50)
[2016-10-17] MEDS ORDERED: ANODYNE LPT 2.1 EACH TP (14:52)
[2016-10-17] MEDS ORDERED: MIRALAX17 GM PO (14:52)
[2016-10-17] MEDS ORDERED: NEPHRO-VITE RX1 EACH PO (14:54)
[2016-10-17] MEDS ORDERED: BYSTOLIC10 MG PO (14:54)
[2016-10-17] MEDS ORDERED: PLAVIX75 MG PO (14:55)
[2016-10-17] MEDS ORDERED: OMEPRAZOLE20 MG PO (14:55)
[2016-10-17] MEDS ORDERED: SODIUM POL15 GM/60 M PO (14:56)
[2016-10-17] MEDS ORDERED: ZOLOFT25 MG PO (14:56)
[2016-10-17] MEDS ORDERED: DULERA 100 MCG/13 GM IH (14:57)
[2016-10-17] MEDS ORDERED: LOSARTAN POTASS50 MG PO (14:57)
[2016-10-17] MEDS ORDERED: MINOXIDIL2.5 MG PO (14:59)
[2016-10-17] MEDS ORDERED: PROBIOTIC250 MG PO (15:01)
[2016-10-17] MEDS ORDERED: ASCORBIC ACID500 M3 PO (15:03)
[2016-10-17] MEDS ORDERED: CLONIDINE HCL0.2 MG PO (15:03)
[2016-10-17] MEDS ORDERED: HYDRALAZINE HCL25 MG PO (15:06)
[2016-10-17] MEDS ORDERED: RENVELA800 MG PO (15:08)
[2016-10-17] MEDS ORDERED: HUMALOG100 UNIT/2 SC (15:14)
[2016-10-17] MEDS ORDERED: ALPRAZOLAM0.25 M2 PO (15:14)
[2016-10-17] MEDS ORDERED: BENADRYL ITCH28.3 GM TP (15:15)
[2016-10-17] MEDS ORDERED: AYR50 ML BOTH NARES (15:15)
[2016-10-17] MEDS ORDERED: DULCOLAX10 MG PR (15:16)
[2016-10-17] MEDS ORDERED: DUONEB 2.5-0.5 M3 ML AEROSOL (15:16)
[2016-10-17] MEDS ORDERED: MILK OF MAGN PO (15:17)
[2016-10-17] MEDS ORDERED: TRAMADOL HCL50 MG PO (15:18)
[2016-10-17] MEDS ORDERED: OXAYDO5 MG PO (15:18)
[2016-10-17] MEDS ORDERED: ZOFRAN4 MG PO (15:19)
[2016-10-17] MEDS ORDERED: TYLENOL REGULA325 MG PO (15:19)
[2016-10-17 20:04] VITALS: BP 171/74
[2016-10-17 21:42] LABS: POINT-OF-CARE METER ID UU13113700
[2016-10-17 22:25] LABS: INTERNAL CONTROL VALID? YES
[2016-10-17 22:28] LABS: HEMATOCRIT 36.6 % (36.0-46.0)
[2016-10-17 22:29] LABS: MCV 94.6 FL (83-99)
[2016-10-17 23:10] LABS: METH RESISTANT S AUREUS PCR POSITIVE (NEGATIVE)
[2016-10-17 23:47] LABS: PROBE CHECK PASS
[2016-10-18 00:05] VITALS: BP 137/72
[2016-10-18 04:55] VITALS: BP 132/59
[2016-10-18 07:43] VITALS: BP 114/53
[2016-10-18 08:02] LABS: HEMATOCRIT 34.8 % (36.0-46.0); MCV 95.9 FL (83-99)
[2016-10-18 08:12] LABS: POINT-OF-CARE METER ID UU13113831
[2016-10-18 11:26] VITALS: BP 110/60
[2016-10-18 12:32] LABS: POINT-OF-CARE METER ID UU13113831
== END 2016-10-18 13:44 ==
LOC: EME 11:18 → EDOF 14:37 → 5WEST 14:37 → EDOF 14:37 → 5WEST 19:44
PROVIDERS: Emergency Medicine; Hospitalist; Internal Medicine; Physician Assistant Medical
DX: I12.0 Hypertensive chronic kidney disease with stage 5 chronic kidney disease or end stage renal disease (principal); N18.6 End stage renal disease; E11.22 Type 2 diabetes mellitus with diabetic chronic kidney disease; D63.1 Anemia in chronic kidney disease; E87.70 Fluid overload, unspecified; Z99.2 Dependence on renal dialysis; E78.5 Hyperlipidemia, unspecified; I73.9 Peripheral vascular disease, unspecified; Z79.4 Long term (current) use of insulin; Z86.14 Personal history of Methicillin resistant Staphylococcus aureus infection; K21.9 Gastro-esophageal reflux disease without esophagitis; Z87.891 Personal history of nicotine dependence; L89.154 Pressure ulcer of sacral region, stage 4; Z89.612 Acquired absence of left leg above knee; Z89.611 Acquired absence of right leg above knee; I69.869 Other paralytic syndrome following other cerebrovascular disease affecting unspecified side; G82.20 Paraplegia, unspecified; I25.2 Old myocardial infarction; N31.9 Neuromuscular dysfunction of bladder, unspecified; J96.10 Chronic respiratory failure, unspecified whether with hypoxia or hypercapnia
CPT/HCPCS: 80048; 82272; 82948; 85014; 85018; 85025 91; 85610; 86900; 86901; 86905; 86920; 87641; 94640; 94799; 99202; A6260; G0257; G0378; J1815; P9016

== ENCOUNTER 2016-11-09 11:42 | Emergency (ER) | payer OTHER ==
[~2016-11-09] VITALS: Ht 102.9 cm; Wt 58.8 kg
[~2016-11-09 11:42] MED LIST changes: +ANODYNE LPT 2.1 EACH TP; +ATORVASTATIN CA10 MG PO; +HUMALOG100 UNIT/2 SC; +MINOXIDIL2.5 MG PO; +OMEPRAZOLE20 MG PO; +OXAYDO5 MG PO; +PERCOCET 10/1 TABLET PO; +PROBIOTIC250 MG PO; +SODIUM POL15 GM/60 M PO
[2016-11-09 12:56] LABS: EOSINOPHIL (%) 0.2 % (0-5); HEMATOCRIT 39.2 % (36.0-46.0); IMMATURE GRANULOCYTE (%) 0.6 % (0.0-0.7); IMMATURE GRANULOCYTE COUNT 0.1 K/uL; INSTRUMENT ABS NEUTROPHIL CT 9.3 K/uL; LYMPHOCYTE COUNT 1.7 K/uL (1.0-2.8); MCH 29.2 PG (29.0-34.0); MCHC 29.1 G/DL (30.0-36.0); MCV 100.5 FL (83-99); MEAN PLAT.VOLUME 8.5 uM^3 (9.5-12.4); MONOCYTE (%) 4.8 % (3-12); MONOCYTE COUNT 0.6 K/uL (0-0.8); NEUTROPHIL COUNT 9.3 K/uL (1.8-6.4); PLATELET COUNT 337 K/uL (156-360); RBC DIS.WIDTH-CV 16.9 % (11.8-14.6); RBC DIS.WIDTH-SD 62.5 % (39-53); WHITE BLOOD COUNT 11.6 K/uL (4.1-10.2)
[2016-11-09 13:08] LABS: CHLORIDE 97 mEq/L (99-109); POTASSIUM 5.4 mEq/L (3.7-5.4); SODIUM 137 mEq/L (136-147)
[2016-11-09 13:09] LABS: GLUCOSE 81 mg/dL (70-99)
[2016-11-09 13:11] LABS: ANION GAP 13 MEQ/L (2-14)
[2016-11-09 13:13] LABS: GFR ESTIMATE (CALCULATED) 11 mL/min/
[2016-11-09 13:14] LABS: UREA NITROGEN (BUN) 52 mg/dL (9-23)
[2016-11-09 20:02] VITALS: BP 127/45
== END 2016-11-09 20:03 ==
LOC: EME 11:42
PROVIDERS: Emergency Medicine
DX: M16.11 Unilateral primary osteoarthritis, right hip (principal); L89.319 Pressure ulcer of right buttock, unspecified stage; L89.159 Pressure ulcer of sacral region, unspecified stage; I12.0 Hypertensive chronic kidney disease with stage 5 chronic kidney disease or end stage renal disease; N18.6 End stage renal disease; E11.22 Type 2 diabetes mellitus with diabetic chronic kidney disease; M85.88 Other specified disorders of bone density and structure, other site; I50.9 Heart failure, unspecified; J44.9 Chronic obstructive pulmonary disease, unspecified; J45.909 Unspecified asthma, uncomplicated; E78.5 Hyperlipidemia, unspecified; K21.9 Gastro-esophageal reflux disease without esophagitis; I73.9 Peripheral vascular disease, unspecified; N31.9 Neuromuscular dysfunction of bladder, unspecified; F41.9 Anxiety disorder, unspecified; F32.9 Major depressive disorder, single episode, unspecified; Z86.14 Personal history of Methicillin resistant Staphylococcus aureus infection; Z87.01 Personal history of pneumonia (recurrent); Z99.2 Dependence on renal dialysis; Z89.612 Acquired absence of left leg above knee; Z89.611 Acquired absence of right leg above knee; Z79.4 Long term (current) use of insulin; Z74.01 Bed confinement status; Z87.891 Personal history of nicotine dependence
CPT/HCPCS: 73502; 80048; 85025; 99281; 99285

== ENCOUNTER 2016-11-12 08:49 | Inpatient (IN) | payer OTHER ==
[~2016-11-12] VITALS: Ht 142.2 cm; Wt 47.8 kg
[2016-11-12 09:42] LABS: CHLORIDE 100 mEq/L (99-109); POTASSIUM 5.6 mEq/L (3.7-5.4); SODIUM 141 mEq/L (136-147)
[2016-11-12 09:44] LABS: GLUCOSE 96 mg/dL (70-99); INTER. NORMALIZED RATIO 1.1; PROTHROMBIN TIME 11.5 (9.2-11.2); PTT 29.9 (25-32)
[2016-11-12 09:45] LABS: ANION GAP 19 MEQ/L (2-14); HEMATOCRIT 38.7 % (36.0-46.0); MCH 29.3 PG (29.0-34.0); MCHC 29.7 G/DL (30.0-36.0); MCV 98.7 FL (83-99); MEAN PLAT.VOLUME 8.7 uM^3 (9.5-12.4); PLATELET COUNT 333 K/uL (156-360); RBC DIS.WIDTH-CV 16.3 % (11.8-14.6); RBC DIS.WIDTH-SD 59.7 % (39-53); RED BLOOD COUNT 3.92 M/uL (3.80-5.20); WHITE BLOOD COUNT 28.8 K/uL (4.1-10.2)
[2016-11-12 09:46] LABS: TOTAL BILIRUBIN 0.4 mg/dL (0.0-1.0)
[2016-11-12 09:47] LABS: ALKALINE PHOSPHATASE 148 IU/L (3-129)
[2016-11-12 09:48] LABS: GFR ESTIMATE (CALCULATED) 10 mL/min/
[2016-11-12 09:49] LABS: UREA NITROGEN (BUN) 63 mg/dL (9-23)
[2016-11-12 09:53] LABS: TROP-I INTERPRETATION INDETERMINATE; TROPONIN-I 0.35 ng/mL (0.0-0.30)
[2016-11-12 10:24] LABS: BASE EXCESS -1.7 mEq/L (-3 to +3); BICARBONATE 23.7 mEq/L (22-26); CARBOXY HGB 1.1 % (0-5); PCO2 42 mm Hg (35-45); PO2 164 mm Hg (80-100); pH 7.36 (7.35-7.45)
[2016-11-12 10:25] LABS: COMMENTS - BLOOD GASES A+C+; DEVICE NRB; FI02 100 %; SITE RB; TOTAL RESP RATE 18 resp/min
[2016-11-12 10:59] LABS: ADD MIUA? YES; BILIRUBIN NEGATIVE; BLOOD SMALL; COLOR YELLOW ((YELLOW)); GLUCOSE (STRIP) NEGATIVE; KETONES NEGATIVE; LEUKOCYTES MODERATE; NITRITE NEGATIVE; PROTEIN (STRIP) >=500; SPECIFIC GRAVITY 1.012 (1.000-1.030); UROBILINOGEN 0.2 MG/DL (0.2-1.0)
[2016-11-12 11:06] LABS: BASOPHIL COUNT 0.1 K/uL (0-0.1); EOSINOPHIL (%) 0 % (0-5); IMMATURE GRANULOCYTE (%) 3.5 % (0.0-0.7); LYMPHOCYTE COUNT 1.1 K/uL (1.0-2.8); MONOCYTE (%) 2.5 % (3-12); MONOCYTE COUNT 0.7 K/uL (0-0.8); NEUTROPHIL (%) 90.1 % (45-76)
[2016-11-12 11:21] LABS: UCUL ADDED? YES
[2016-11-12 11:24] LABS: AMORPHOUS URATES CRYSTALS 4+
[2016-11-12] MEDS ORDERED: NEURONTIN300 MG PO (12:25)
[2016-11-12] MEDS ORDERED: PRILOSEC OTC20 MG PO (12:28)
[2016-11-12] MEDS ORDERED: ZOLOFT50 MG PO (12:29)
[2016-11-12] MEDS ORDERED: GLUCAGEN1 MG IM (12:36)
[2016-11-12] MEDS ORDERED: GLUCOSE GEL15 GM PO (12:36)
[2016-11-12] MEDS ORDERED: OXYCODONE HCL10 MG PO (12:37)
[2016-11-12] MEDS ORDERED: OXYCODONE HCL5 MG PO (12:38)
[2016-11-12 13:42] LABS: HBSG INDEX 0.17
[2016-11-12 19:02] VITALS: BP 133/59
[2016-11-12 20:10] VITALS: BP 157/64
[2016-11-13] VITALS (7 sets, daily range): BP systolic 109–159; BP diastolic 44–68
[2016-11-13 06:17] LABS: EOSINOPHIL (%) 0.1 % (0-5); HEMATOCRIT 38.6 % (36.0-46.0); IMMATURE GRANULOCYTE (%) 0.5 % (0.0-0.7); IMMATURE GRANULOCYTE COUNT 0.1 K/uL; INSTRUMENT ABS NEUTROPHIL CT 14.4 K/uL; LYMPHOCYTE COUNT 2.1 K/uL (1.0-2.8); MCH 29.6 PG (29.0-34.0); MCV 102.1 FL (83-99); MEAN PLAT.VOLUME 9.1 uM^3 (9.5-12.4); MONOCYTE (%) 4.6 % (3-12); MONOCYTE COUNT 0.8 K/uL (0-0.8); NEUTROPHIL (%) 82.8 % (45-76); NEUTROPHIL COUNT 14.4 K/uL (1.8-6.4); PLATELET COUNT 248 K/uL (156-360); RBC DIS.WIDTH-CV 16.6 % (11.8-14.6); RBC DIS.WIDTH-SD 62.3 % (39-53); RED BLOOD COUNT 3.78 M/uL (3.80-5.20); WHITE BLOOD COUNT 17.3 K/uL (4.1-10.2)
[2016-11-14 03:14] VITALS: BP 126/58
[2016-11-14 08:41] LABS: EOSINOPHIL (%) 0.1 % (0-5); IMMATURE GRANULOCYTE (%) 0.9 % (0.0-0.7); IMMATURE GRANULOCYTE COUNT 0.1 K/uL; INSTRUMENT ABS NEUTROPHIL CT 12.3 K/uL; LYMPHOCYTE COUNT 1.8 K/uL (1.0-2.8); MCH 29.4 PG (29.0-34.0); MCHC 29.4 G/DL (30.0-36.0); MEAN PLAT.VOLUME 8.9 uM^3 (9.5-12.4); MONOCYTE (%) 4.1 % (3-12); MONOCYTE COUNT 0.6 K/uL (0-0.8); NEUTROPHIL COUNT 12.3 K/uL (1.8-6.4); PLATELET COUNT 184 K/uL (156-360); RBC DIS.WIDTH-CV 16.2 % (11.8-14.6); RBC DIS.WIDTH-SD 59.2 % (39-53); WHITE BLOOD COUNT 14.8 K/uL (4.1-10.2)
[2016-11-14 09:00] LABS: ANION GAP 13 MEQ/L (2-14); CHLORIDE 101 MEQ/L (99-109); GLUCOSE 99 mg/dL (70-99); SAMPLE HEMOLYSIS CHECK 0; SAMPLE ICTERIC CHECK 0; SAMPLE LIPEMIA CHECK 0; SODIUM 141 MEQ/L (136-147); UREA NITROGEN (BUN) 36 mg/dL (9-23)
[2016-11-14 09:01] LABS: GFR ESTIMATE (CALCULATED) 17 mL/min/; POTASSIUM 3.6 MEQ/L (3.7-5.4)
[2016-11-14 12:48] VITALS: BP 182/72
[2016-11-14 15:15] VITALS: BP 145/65
[2016-11-14 16:52] LABS: POINT-OF-CARE METER ID UU13113698
[2016-11-14 21:30] VITALS: BP 182/79
[2016-11-15 00:24] VITALS: BP 173/73
[2016-11-15 02:27] LABS: POINT-OF-CARE METER ID UU13113781
[2016-11-15 05:30] VITALS: BP 181/74
[2016-11-15 05:52] LABS: POINT-OF-CARE METER ID UU13113781
[2016-11-15 08:11] LABS: POINT-OF-CARE USER ID NUTSLF44
[2016-11-15 08:46] VITALS: BP 142/62
[2016-11-15 11:41] LABS: POINT-OF-CARE USER ID NUTSLF44
[2016-11-15 12:11] VITALS: BP 121/70
[2016-11-15 13:02] LABS: POINT-OF-CARE METER ID UU13113781; POINT-OF-CARE USER ID NUTSLF44
[2016-11-15 16:00] VITALS: BP 158/70
[2016-11-15 16:33] LABS: POINT-OF-CARE METER ID UU13113781; POINT-OF-CARE USER ID NUTSLF44
[2016-11-15 21:10] VITALS: BP 184/77
[2016-11-15 21:24] LABS: POINT-OF-CARE METER ID UU14174216; POINT-OF-CARE USER ID ENVMNS
[2016-11-16 00:03] VITALS: BP 134/66
[2016-11-16 04:23] VITALS: BP 140/58
[2016-11-16 07:36] LABS: MCH 29.1 PG (29.0-34.0); MCHC 29.2 G/DL (30.0-36.0); MCV 99.5 FL (83-99); MEAN PLAT.VOLUME 9.1 uM^3 (9.5-12.4); PLATELET COUNT 156 K/uL (156-360); RBC DIS.WIDTH-CV 16.5 % (11.8-14.6); RBC DIS.WIDTH-SD 59.7 % (39-53); RED BLOOD COUNT 3.92 M/uL (3.80-5.20); WHITE BLOOD COUNT 13.2 K/uL (4.1-10.2)
[2016-11-16 07:57] LABS: ANION GAP 11 MEQ/L (2-14); CHLORIDE 104 MEQ/L (99-109); GFR ESTIMATE (CALCULATED) 16 mL/min/; GLUCOSE 81 mg/dL (70-99); POTASSIUM 3.4 MEQ/L (3.7-5.4); SAMPLE HEMOLYSIS CHECK 0; SAMPLE ICTERIC CHECK 0; SAMPLE LIPEMIA CHECK 0; SODIUM 141 MEQ/L (136-147); UREA NITROGEN (BUN) 29 mg/dL (9-23)
[2016-11-16 16:00] VITALS: BP 118/82
[2016-11-16 16:32] LABS: POINT-OF-CARE METER ID UU13113698
[2016-11-16 20:00] VITALS: BP 179/75
[2016-11-16 21:17] LABS: POINT-OF-CARE METER ID UU13113698
[2016-11-16 22:18] LABS: POINT-OF-CARE METER ID UU13113781
[2016-11-16 23:57] VITALS: BP 154/66
[2016-11-17 04:05] VITALS: BP 159/71
[2016-11-17 07:42] LABS: POINT-OF-CARE METER ID UU13113781
[2016-11-17 08:45] VITALS: BP 138/54
[2016-11-17 11:40] VITALS: BP 138/60
[2016-11-17 11:49] LABS: POINT-OF-CARE METER ID UU13113781
[2016-11-17 15:50] VITALS: BP 144/64
[2016-11-17 16:01] LABS: POINT-OF-CARE METER ID UU13113781
[2016-11-17 20:50] VITALS: BP 164/54
[2016-11-17 21:20] LABS: POINT-OF-CARE METER ID UU13113781
[2016-11-18] VITALS (9 sets, daily range): BP systolic 138–186; BP diastolic 58–76
[2016-11-18 06:58] LABS: POINT-OF-CARE METER ID UU13113781
[2016-11-18 11:19] LABS: POINT-OF-CARE METER ID UU13113781
[2016-11-18 16:09] LABS: POINT-OF-CARE METER ID UU14174216
[2016-11-18 21:38] LABS: POINT-OF-CARE USER ID BHSKTD
[2016-11-19 06:15] LABS: POINT-OF-CARE METER ID UU14188625
[2016-11-19 07:13] LABS: HEMATOCRIT 42.5 % (36.0-46.0); MCH 28.7 PG (29.0-34.0); MCHC 29.2 G/DL (30.0-36.0); MCV 98.4 FL (83-99); MEAN PLAT.VOLUME 9.6 uM^3 (9.5-12.4); PLATELET COUNT 210 K/uL (156-360); RBC DIS.WIDTH-CV 16.4 % (11.8-14.6); RBC DIS.WIDTH-SD 59.5 % (39-53); RED BLOOD COUNT 4.32 M/uL (3.80-5.20); WHITE BLOOD COUNT 13.4 K/uL (4.1-10.2)
[2016-11-19 07:17] LABS: ANION GAP 16 MEQ/L (2-14); CHLORIDE 104 MEQ/L (99-109); GFR ESTIMATE (CALCULATED) 12 mL/min/; POTASSIUM 3.5 MEQ/L (3.7-5.4); SAMPLE HEMOLYSIS CHECK 0; SAMPLE ICTERIC CHECK 0; SAMPLE LIPEMIA CHECK 0; SODIUM 140 MEQ/L (136-147); UREA NITROGEN (BUN) 41 mg/dL (9-23)
[2016-11-19 07:18] LABS: GLUCOSE 129 mg/dL (70-99)
[2016-11-19 08:22] VITALS: BP 157/34
[2016-11-19 12:48] LABS: POINT-OF-CARE METER ID UU13113681; POINT-OF-CARE USER ID DROKMM72
[2016-11-19 13:33] LABS: POINT-OF-CARE METER ID UU13113681; POINT-OF-CARE USER ID DROKMM72
[2016-11-19 15:17] VITALS: BP 92/51
[2016-11-19 19:33] VITALS: BP 182/75
[2016-11-19 21:01] LABS: POINT-OF-CARE METER ID UU14174225
[2016-11-19 23:45] VITALS: BP 160/78
[2016-11-20 08:03] LABS: POINT-OF-CARE METER ID UU14174225
[2016-11-20 08:11] VITALS: BP 151/66
[2016-11-20 15:45] VITALS: BP 132/72
[2016-11-20 15:46] VITALS: BP 122/66
[2016-11-20 21:15] LABS: POINT-OF-CARE METER ID UU13113717
[2016-11-21 00:05] VITALS: BP 141/60
[2016-11-21 07:35] LABS: POINT-OF-CARE METER ID UU13113717
[2016-11-21 07:36] VITALS: BP 114/63
[2016-11-21 08:33] LABS: ANION GAP 16 MEQ/L (2-14); CHLORIDE 103 MEQ/L (99-109); POTASSIUM 3.8 MEQ/L (3.7-5.4); SAMPLE HEMOLYSIS CHECK 0; SAMPLE ICTERIC CHECK 0; SAMPLE LIPEMIA CHECK 0; SODIUM 139 MEQ/L (136-147)
[2016-11-21 08:41] LABS: GFR ESTIMATE (CALCULATED) 14 mL/min/; GLUCOSE 102 mg/dL (70-99); UREA NITROGEN (BUN) 38 mg/dL (9-23)
[2016-11-21 08:42] LABS: HEMATOCRIT 34.1 % (36.0-46.0); MCH 29.1 PG (29.0-34.0); MCHC 29.9 G/DL (30.0-36.0); MCV 97.4 FL (83-99); MEAN PLAT.VOLUME 9.7 uM^3 (9.5-12.4); RBC DIS.WIDTH-CV 17.1 % (11.8-14.6); RBC DIS.WIDTH-SD 60.5 % (39-53); WHITE BLOOD COUNT 23.5 K/uL (4.1-10.2)
[2016-11-21 08:43] LABS: PLATELET COUNT 383 K/uL (156-360)
[2016-11-21 11:20] LABS: POINT-OF-CARE METER ID UU13113717
[2016-11-21 12:49] LABS: IRON 65 MCG/DL (35-150)
[2016-11-21 15:07] VITALS: BP 115/59
[2016-11-21 22:23] VITALS: BP 114/68
[2016-11-22 00:20] VITALS: BP 120/68
[2016-11-22 08:20] LABS: POINT-OF-CARE METER ID UU14174225
[2016-11-22 08:41] VITALS: BP 120/70
[2016-11-22 09:38] LABS: HEMATOCRIT 33.5 % (36.0-46.0); MCH 29.8 PG (29.0-34.0); MCHC 29.9 G/DL (30.0-36.0); MCV 99.7 FL (83-99); PLATELET COUNT 362 K/uL (156-360); RBC DIS.WIDTH-CV 17.1 % (11.8-14.6); RBC DIS.WIDTH-SD 62.4 % (39-53); RED BLOOD COUNT 3.36 M/uL (3.80-5.20); WHITE BLOOD COUNT 27.4 K/uL (4.1-10.2)
[2016-11-22 15:35] VITALS: BP 128/76
[2016-11-22 23:28] VITALS: BP 121/74
[2016-11-23 03:38] LABS: POINT-OF-CARE METER ID UU14174225
[2016-11-23 06:02] LABS: HEMATOCRIT 30.9 % (36.0-46.0); MCH 30.6 PG (29.0-34.0); MCHC 31.4 G/DL (30.0-36.0); MCV 97.5 FL (83-99); MEAN PLAT.VOLUME 10.1 uM^3 (9.5-12.4); NRBC (%) 0.1 /100 WBC (0-0); PLATELET COUNT 346 K/uL (156-360); RBC DIS.WIDTH-CV 17.2 % (11.8-14.6); RBC DIS.WIDTH-SD 60.9 % (39-53); RED BLOOD COUNT 3.17 M/uL (3.80-5.20); WHITE BLOOD COUNT 25.6 K/uL (4.1-10.2)
[2016-11-23 06:28] LABS: ANION GAP 19 MEQ/L (2-14); CHLORIDE 101 MEQ/L (99-109); GFR ESTIMATE (CALCULATED) 12 mL/min/; GLUCOSE 75 mg/dL (70-99); POTASSIUM 4.1 MEQ/L (3.7-5.4); SAMPLE HEMOLYSIS CHECK 0; SAMPLE ICTERIC CHECK 0; SAMPLE LIPEMIA CHECK 0; SODIUM 141 MEQ/L (136-147); UREA NITROGEN (BUN) 49 mg/dL (9-23)
[2016-11-23 09:10] LABS: POINT-OF-CARE METER ID UU13113681
[2016-11-23 10:44] LABS: POINT-OF-CARE METER ID UU13113681
[2016-11-23 17:29] VITALS: BP 106/60
[2016-11-23 19:59] LABS: BASE EXCESS -2.1 mEq/L (-3 to +3); BICARBONATE 19.9 mEq/L (22-26); CARBOXY HGB 1.3 % (0-5); COMMENTS - BLOOD GASES A+C+; DEVICE NC; METHEMOGLOBIN 2.1 % (0-1.5); O2 FLOW 3 L/MIN; PCO2 25 mm Hg (35-45); PO2 128 mm Hg (80-100); SITE RR; TOTAL RESP RATE 20 resp/min; pH 7.51 (7.35-7.45)
[2016-11-23 21:00] VITALS: BP 97/44
[2016-11-23 21:02] LABS: BASOPHIL COUNT 0.1 K/uL (0-0.1); EOSINOPHIL (%) 0 % (0-5); IMMATURE GRANULOCYTE COUNT 0.4 K/uL; INSTRUMENT ABS NEUTROPHIL CT 28.4 K/uL; MCH 30.5 PG (29.0-34.0); MCHC 30.6 G/DL (30.0-36.0); MCV 99.7 FL (83-99); MEAN PLAT.VOLUME 10.4 uM^3 (9.5-12.4); MONOCYTE COUNT 0.7 K/uL (0-0.8); NEUTROPHIL COUNT 28.4 K/uL (1.8-6.4); NRBC (%) 0.1 /100 WBC (0-0); PLATELET COUNT 439 K/uL (156-360); RBC DIS.WIDTH-CV 17.3 % (11.8-14.6); RBC DIS.WIDTH-SD 62.7 % (39-53); RED BLOOD COUNT 3.51 M/uL (3.80-5.20)
[2016-11-23 21:03] LABS: PTT 33.6 (25-32); WHITE BLOOD COUNT 33.5 K/uL (4.1-10.2)
[2016-11-23 21:05] LABS: PROTHROMBIN TIME 20.3 (9.2-11.2)
[2016-11-23 21:18] LABS: TROP-I INTERPRETATION NEGATIVE; TROPONIN-I 0.25 ng/mL (0.0-0.30)
[2016-11-23 21:20] LABS: CK-MB 2.2 ng/mL (0.0-4.9)
[2016-11-23 21:28] LABS: ANION GAP 23 MEQ/L (2-14); CHLORIDE 102 MEQ/L (99-109); CREATINE KINASE 25 IU/L (1-294); SAMPLE HEMOLYSIS CHECK 0; SAMPLE ICTERIC CHECK 0; SAMPLE LIPEMIA CHECK 0; SODIUM 141 MEQ/L (136-147); TOTAL CK 25 IU/L (1-294); UREA NITROGEN (BUN) 30 mg/dL (9-23)
[2016-11-23 21:29] LABS: GFR ESTIMATE (CALCULATED) 18 mL/min/; GLUCOSE 152 mg/dL (70-99)
[2016-11-23 22:00] VITALS: BP 122/54
[2016-11-23 22:58] LABS: HEMATOCRIT 30.5 % (36.0-46.0); MCH 29.1 PG (29.0-34.0); MCHC 30.5 G/DL (30.0-36.0); MCV 95.3 FL (83-99); MEAN PLAT.VOLUME 10.4 uM^3 (9.5-12.4); PLATELET COUNT 424 K/uL (156-360); RBC DIS.WIDTH-CV 17.2 % (11.8-14.6); RBC DIS.WIDTH-SD 58.6 % (39-53); WHITE BLOOD COUNT 27.3 K/uL (4.1-10.2)
[2016-11-23 23:00] LABS: POINT-OF-CARE METER ID UU13113803
[2016-11-23 23:05] LABS: CHLORIDE 105 mEq/L (99-109); SODIUM 140 mEq/L (136-147)
[2016-11-23 23:06] LABS: MAGNESIUM 1.5 mg/dL (1.3-2.7)
[2016-11-23 23:08] LABS: GLUCOSE 169 mg/dL (70-99)
[2016-11-23 23:10] LABS: ANION GAP 18 MEQ/L (2-14); TOTAL BILIRUBIN 0.2 mg/dL (0.0-1.0)
[2016-11-23 23:12] LABS: ALKALINE PHOSPHATASE 160 IU/L (3-129); GFR ESTIMATE (CALCULATED) 19 mL/min/
[2016-11-23 23:13] LABS: UREA NITROGEN (BUN) 32 mg/dL (9-23)
[2016-11-23 23:23] LABS: TROP-I INTERPRETATION NEGATIVE; TROPONIN-I 0.25 ng/mL (0.0-0.30)
[2016-11-24 00:50] LABS: METH RESISTANT S AUREUS PCR NEGATIVE (NEGATIVE)
[2016-11-24 00:52] LABS: PROBE CHECK PASS; SPECIMEN PROCESSING CONTROL PASS
[2016-11-24 05:44] LABS: POINT-OF-CARE METER ID UU13113748
[2016-11-24 05:45] LABS: HEMATOCRIT 27.9 % (36.0-46.0); MCH 30.3 PG (29.0-34.0); MCHC 31.5 G/DL (30.0-36.0); MCV 96.2 FL (83-99); MEAN PLAT.VOLUME 10.4 uM^3 (9.5-12.4); PLATELET COUNT 388 K/uL (156-360); RBC DIS.WIDTH-CV 17.2 % (11.8-14.6); RBC DIS.WIDTH-SD 58.9 % (39-53); WHITE BLOOD COUNT 28.9 K/uL (4.1-10.2)
[2016-11-24 05:52] LABS: INTER. NORMALIZED RATIO 2.1; PROTHROMBIN TIME 22.4 (9.2-11.2)
[2016-11-24 05:58] LABS: TROP-I INTERPRETATION INDETERMINATE; TROPONIN-I 0.31 ng/mL (0.0-0.30)
[2016-11-24 06:23] LABS: ANION GAP 16 MEQ/L (2-14); CHLORIDE 104 MEQ/L (99-109); GFR ESTIMATE (CALCULATED) 18 mL/min/; MAGNESIUM 1.8 mg/dl (1.3-2.7); POTASSIUM 3.6 MEQ/L (3.7-5.4); SAMPLE HEMOLYSIS CHECK 0; SAMPLE ICTERIC CHECK 0; SAMPLE LIPEMIA CHECK 0; SODIUM 141 MEQ/L (136-147); UREA NITROGEN (BUN) 31 mg/dL (9-23)
[2016-11-24 06:26] LABS: GLUCOSE 93 mg/dL (70-99)
[2016-11-24 06:34] LABS: C DIFF TOXIN NEGATIVE (NEGATIVE)
[2016-11-24 06:36] LABS: PROBE CHECK PASS; SPECIMEN PROCESSING CONTROL PASS
[2016-11-24 07:00] VITALS: BP 126/53
[2016-11-24 11:00] VITALS: BP 149/44
[2016-11-24 13:44] LABS: TROP-I INTERPRETATION INDETERMINATE; TROPONIN-I 0.38 ng/mL (0.0-0.30)
[2016-11-24 14:59] LABS: POINT-OF-CARE METER ID UU14174217
[2016-11-24 18:39] LABS: POINT-OF-CARE METER ID UU14174217
[2016-11-24 19:44] LABS: TROP-I INTERPRETATION INDETERMINATE; TROPONIN-I 0.39 ng/mL (0.0-0.30)
[2016-11-24 20:00] VITALS: BP 140/46
[2016-11-24 22:00] VITALS: BP 152/52
[2016-11-25] VITALS: BP 126/20
[2016-11-25 00:31] LABS: POINT-OF-CARE METER ID UU14174217
[2016-11-25 04:00] VITALS: BP 121/18
[2016-11-25 06:23] LABS: HEMATOCRIT 23.2 % (36.0-46.0); MCH 30.3 PG (29.0-34.0); MCV 97.5 FL (83-99); MEAN PLAT.VOLUME 10.1 uM^3 (9.5-12.4); PLATELET COUNT 319 K/uL (156-360); RBC DIS.WIDTH-CV 17.6 % (11.8-14.6); RBC DIS.WIDTH-SD 60.9 % (39-53); RED BLOOD COUNT 2.38 M/uL (3.80-5.20); WHITE BLOOD COUNT 21.7 K/uL (4.1-10.2)
[2016-11-25 06:38] LABS: INTER. NORMALIZED RATIO 1.8; PROTHROMBIN TIME 18.7 (9.2-11.2)
[2016-11-25 07:02] LABS: ANION GAP 15 MEQ/L (2-14); CHLORIDE 105 MEQ/L (99-109); GFR ESTIMATE (CALCULATED) 16 mL/min/; POTASSIUM 3.5 MEQ/L (3.7-5.4); SAMPLE HEMOLYSIS CHECK 0; SAMPLE ICTERIC CHECK 0; SAMPLE LIPEMIA CHECK 0; SODIUM 140 MEQ/L (136-147); UREA NITROGEN (BUN) 36 mg/dL (9-23)
[2016-11-25 07:03] LABS: GLUCOSE 57 mg/dL (70-99); MAGNESIUM 2.5 mg/dl (1.3-2.7)
[2016-11-25 07:49] LABS: POINT-OF-CARE METER ID UU13113748
[2016-11-25 08:00] VITALS: BP 147/49
[2016-11-25 08:23] LABS: POINT-OF-CARE METER ID UU13113748
[2016-11-25 12:21] LABS: POINT-OF-CARE METER ID UU13113748
[2016-11-25 12:35] LABS: POINT-OF-CARE USER ID BHSKTD
[2016-11-25 17:00] VITALS: BP 101/19
[2016-11-25 17:23] LABS: POINT-OF-CARE METER ID UU14174217
[2016-11-25 18:00] VITALS: BP 115/28
[2016-11-25 21:38] LABS: POINT-OF-CARE METER ID UU14174217
[2016-11-26 04:59] LABS: POINT-OF-CARE METER ID UU13113748
[2016-11-26 05:41] LABS: POINT-OF-CARE METER ID UU13113748
[2016-11-26 08:00] VITALS: BP 139/41
[2016-11-26 09:24] LABS: POINT-OF-CARE METER ID UU13113748
[2016-11-26 10:32] LABS: POINT-OF-CARE METER ID UU13113748
[2016-11-26 11:49] LABS: POINT-OF-CARE METER ID UU13113748
[2016-11-26 12:00] VITALS: BP 148/30
[2016-11-26 12:43] LABS: EOSINOPHIL (%) 0.3 % (0-5); EOSINOPHIL COUNT 0.1 K/uL (0-0.3); HEMATOCRIT 22.3 % (36.0-46.0); IMMATURE GRANULOCYTE (%) 0.8 % (0.0-0.7); IMMATURE GRANULOCYTE COUNT 0.1 K/uL; INSTRUMENT ABS NEUTROPHIL CT 13.5 K/uL; LYMPHOCYTE COUNT 1.8 K/uL (1.0-2.8); MCH 29.9 PG (29.0-34.0); MCHC 30.9 G/DL (30.0-36.0); MCV 96.5 FL (83-99); MONOCYTE (%) 2.5 % (3-12); MONOCYTE COUNT 0.4 K/uL (0-0.8); NEUTROPHIL (%) 84.9 % (45-76); NEUTROPHIL COUNT 13.5 K/uL (1.8-6.4); PLATELET COUNT 251 K/uL (156-360); RBC DIS.WIDTH-CV 17.5 % (11.8-14.6); RBC DIS.WIDTH-SD 60.6 % (39-53); RED BLOOD COUNT 2.31 M/uL (3.80-5.20); WHITE BLOOD COUNT 15.9 K/uL (4.1-10.2)
[2016-11-26 12:59] LABS: ANION GAP 13 MEQ/L (2-14); CHLORIDE 105 MEQ/L (99-109); GFR ESTIMATE (CALCULATED) 14 mL/min/; MAGNESIUM 2.2 mg/dl (1.3-2.7); SAMPLE HEMOLYSIS CHECK 0; SAMPLE ICTERIC CHECK 0; SAMPLE LIPEMIA CHECK 0; SODIUM 136 MEQ/L (136-147); UREA NITROGEN (BUN) 38 mg/dL (9-23)
[2016-11-26 13:05] LABS: GLUCOSE 161 mg/dL (70-99)
[2016-11-26 13:41] LABS: INTER. NORMALIZED RATIO 1.4
[2016-11-26 18:00] VITALS: BP 145/30
[2016-11-26 18:00] LABS: POINT-OF-CARE METER ID UU13113748
[2016-11-26 20:00] VITALS: BP 151/54
[2016-11-26 21:49] LABS: POINT-OF-CARE METER ID UU13113731
[2016-11-27] VITALS (9 sets, daily range): BP systolic 121–185; BP diastolic 21–68
[2016-11-27 05:35] LABS: INTER. NORMALIZED RATIO 1.3; PROTHROMBIN TIME 13.8 (9.2-11.2)
[2016-11-27 05:51] LABS: ANION GAP 9 MEQ/L (2-14); CHLORIDE 102 MEQ/L (99-109); SAMPLE HEMOLYSIS CHECK 0; SAMPLE ICTERIC CHECK 0; SAMPLE LIPEMIA CHECK 0; SODIUM 136 MEQ/L (136-147)
[2016-11-27 05:55] LABS: GFR ESTIMATE (CALCULATED) 27 mL/min/; GLUCOSE 61 mg/dL (70-99); MAGNESIUM 1.8 mg/dl (1.3-2.7); UREA NITROGEN (BUN) 17 mg/dL (9-23)
[2016-11-27 06:07] LABS: HEMATOCRIT 29.7 % (36.0-46.0); MCH 31.7 PG (29.0-34.0); MCHC 33.7 G/DL (30.0-36.0); MCV 94.3 FL (83-99); MEAN PLAT.VOLUME 10.1 uM^3 (9.5-12.4); PLATELET COUNT 205 K/uL (156-360); RBC DIS.WIDTH-CV 17.1 % (11.8-14.6); RBC DIS.WIDTH-SD 56.7 % (39-53); WHITE BLOOD COUNT 13.7 K/uL (4.1-10.2)
[2016-11-27 06:11] LABS: RED BLOOD COUNT 3.15 M/uL (3.80-5.20)
[2016-11-27 06:48] LABS: POINT-OF-CARE METER ID UU14174217
[2016-11-27 12:07] LABS: POINT-OF-CARE METER ID UU14174217
[2016-11-27 16:30] LABS: POINT-OF-CARE METER ID UU14174217
[2016-11-27 23:29] LABS: POINT-OF-CARE METER ID UU14174217
[2016-11-28] VITALS (8 sets, daily range): BP systolic 142–193; BP diastolic 49–65
[2016-11-28 00:41] LABS: POINT-OF-CARE METER ID UU14174217
[2016-11-28 05:51] LABS: ANION GAP 10 MEQ/L (2-14); CHLORIDE 104 MEQ/L (99-109); GFR ESTIMATE (CALCULATED) 20 mL/min/; GLUCOSE 58 mg/dL (70-99); POTASSIUM 3.4 MEQ/L (3.7-5.4); SAMPLE HEMOLYSIS CHECK 0; SAMPLE ICTERIC CHECK 0; SAMPLE LIPEMIA CHECK 0; SODIUM 138 MEQ/L (136-147); UREA NITROGEN (BUN) 21 mg/dL (9-23)
[2016-11-28 07:41] LABS: POINT-OF-CARE METER ID UU13113803
[2016-11-28 12:46] LABS: POINT-OF-CARE METER ID UU13113731
[2016-11-28 14:13] LABS: POINT-OF-CARE METER ID UU13113803
[2016-11-28 17:57] LABS: POINT-OF-CARE METER ID UU13113803
[2016-11-28 22:23] LABS: POINT-OF-CARE METER ID UU13113803
[2016-11-29] VITALS (7 sets, daily range): BP systolic 137–181; BP diastolic 46–56
[2016-11-29 06:44] LABS: ANION GAP 14 MEQ/L (2-14); CHLORIDE 105 MEQ/L (99-109); GLUCOSE 50 mg/dL (70-99); SAMPLE HEMOLYSIS CHECK 2; SAMPLE ICTERIC CHECK 0; SAMPLE LIPEMIA CHECK 0; SODIUM 136 MEQ/L (136-147); UREA NITROGEN (BUN) 28 mg/dL (9-23)
[2016-11-29 06:46] LABS: GFR ESTIMATE (CALCULATED) 16 mL/min/; POTASSIUM 4.8 MEQ/L (3.7-5.4)
[2016-11-29 07:55] LABS: POTASSIUM 3.9 MEQ/L (3.7-5.4)
[2016-11-29 09:22] LABS: POINT-OF-CARE METER ID UU13113731
[2016-11-29 11:26] LABS: POINT-OF-CARE METER ID UU13113731
[2016-11-29 14:43] LABS: HEMATOCRIT 28.7 % (36.0-46.0); MCH 31.1 PG (29.0-34.0); MCHC 32.4 G/DL (30.0-36.0); RBC DIS.WIDTH-CV 17.2 % (11.8-14.6); RBC DIS.WIDTH-SD 60.6 % (39-53); RED BLOOD COUNT 2.99 M/uL (3.80-5.20); WHITE BLOOD COUNT 10.1 K/uL (4.1-10.2)
[2016-11-29 15:08] LABS: MEAN PLAT.VOLUME 9.5 uM^3 (9.5-12.4); PLAT.SUFFICIENCY ADEQUATE; PLATELET COUNT 137 K/uL (156-360)
[2016-11-29 17:49] LABS: POINT-OF-CARE METER ID UU14174217
[2016-11-29 22:26] LABS: POINT-OF-CARE METER ID UU14174217
[2016-11-30] VITALS (9 sets, daily range): BP systolic 134–186; BP diastolic 44–65
[2016-11-30 07:23] LABS: CHLORIDE 107 mEq/L (99-109); POTASSIUM 4.3 mEq/L (3.7-5.4); SODIUM 139 mEq/L (136-147)
[2016-11-30 07:24] LABS: GLUCOSE 61 mg/dL (70-99)
[2016-11-30 07:26] LABS: ANION GAP 11 MEQ/L (2-14)
[2016-11-30 07:28] LABS: POINT-OF-CARE METER ID UU13113803
[2016-11-30 07:28] LABS: POINT-OF-CARE METER ID UU13113803
[2016-11-30 07:29] LABS: UREA NITROGEN (BUN) 21 mg/dL (9-23)
[2016-11-30 07:35] LABS: GFR ESTIMATE (CALCULATED) 20 mL/min/
[2016-11-30 09:29] LABS: POINT-OF-CARE METER ID UU13113803
[2016-11-30 11:15] LABS: POINT-OF-CARE METER ID UU13113803
[2016-11-30 17:35] LABS: POINT-OF-CARE METER ID UU13113803
[2016-12-01] VITALS: BP 163/48
[2016-12-01 04:00] VITALS: BP 169/55
[2016-12-01 08:00] VITALS: BP 177/51
[2016-12-01 09:27] LABS: POINT-OF-CARE METER ID UU14174217
[2016-12-01 12:00] VITALS: BP 165/80
[2016-12-01 12:47] LABS: POINT-OF-CARE METER ID UU14174217
== END 2016-12-01 13:45 | DRG 853 ==
LOC: EME → EDBD 08:49 → 4EAST 13:42 → 5SOUTH 13:42 → 4WEST 13:42 → EDOF 13:42 → 4EAST 18:18 → 5SOUTH 11-18 20:42 → 4EAST 11-23 20:18 → 4WEST 11-23 20:44
PROVIDERS: Emergency Medicine; Hospitalist; Internal Medicine; Internal Medicine Nephrology; Physician Assistant Surgical
DX: A40.1 Sepsis due to streptococcus, group B (principal); R65.21 Severe sepsis with septic shock; I13.2 Hypertensive heart and chronic kidney disease with heart failure and with stage 5 chronic kidney disease, or end stage renal disease; L89.154 Pressure ulcer of sacral region, stage 4; G92 Toxic encephalopathy; N18.6 End stage renal disease; D68.9 Coagulation defect, unspecified; E87.2 Acidosis; E46 Unspecified protein-calorie malnutrition; L89.313 Pressure ulcer of right buttock, stage 3; G82.20 Paraplegia, unspecified; D63.1 Anemia in chronic kidney disease; E11.22 Type 2 diabetes mellitus with diabetic chronic kidney disease; E78.5 Hyperlipidemia, unspecified; E11.51 Type 2 diabetes mellitus with diabetic peripheral angiopathy without gangrene; E11.65 Type 2 diabetes mellitus with hyperglycemia; E27.8 Other specified disorders of adrenal gland; E86.1 Hypovolemia; E87.6 Hypokalemia; F43.21 Adjustment disorder with depressed mood; I69.398 Other sequelae of cerebral infarction; G93.89 Other specified disorders of brain; I48.0 Paroxysmal atrial fibrillation; I50.9 Heart failure, unspecified; J44.9 Chronic obstructive pulmonary disease, unspecified; J98.11 Atelectasis; K21.9 Gastro-esophageal reflux disease without esophagitis; N31.9 Neuromuscular dysfunction of bladder, unspecified; N39.0 Urinary tract infection, site not specified; N83.202 Unspecified ovarian cyst, left side; T40.605A Adverse effect of unspecified narcotics, initial encounter; T82.858A Stenosis of other vascular prosthetic devices, implants and grafts, initial encounter; Y71.2 Prosthetic and other implants, materials and accessory cardiovascular devices associated with adverse incidents; Z51.5 Encounter for palliative care; Z88.1 Allergy status to other antibiotic agents; Z89.611 Acquired absence of right leg above knee; Z89.612 Acquired absence of left leg above knee; Z99.2 Dependence on renal dialysis; M54.9 Dorsalgia, unspecified; R10.84 Generalized abdominal pain; R15.9 Full incontinence of feces; I69.334 Monoplegia of upper limb following cerebral infarction affecting left non-dominant side; Z87.891 Personal history of nicotine dependence; I95.9 Hypotension, unspecified; L89.322 Pressure ulcer of left buttock, stage 2; L89.892 Pressure ulcer of other site, stage 2; J45.909 Unspecified asthma, uncomplicated; N95.9 Unspecified menopausal and perimenopausal disorder; M86.8X8 Other osteomyelitis, other site; Z68.22 Body mass index [BMI] 22.0-22.9, adult; R09.02 Hypoxemia
CPT/HCPCS: 36600; 70450; 71010; 74176; 76937; 80048; 80048 91; 80053; 80069; 81003; 82550; 82553; 82803; 82948; 83540; 83605; 83735; 83880; 84100; 84466; 84484; 84999; 85025; 85025 91; 85027; 85610; 85730; 86900; 86901; 86905; 86920; 87040; 87070; 87075; 87076; 87077; 87086 GA; 87185; 87186; 87205; 87340; 87493; 87641; 87801; 93005; 94799; 99281; 99285; A6260; C1753; C9113; J0131; J0295; J0330; J0360; J0690; J0881; J1170; J1200; J1644; J1815; J2020; J2310; J2405; J2543; J2710; J2765; J3010; J3475; J7050; J7120; P9016; S0028; S0073

== ENCOUNTER 2016-12-04 14:47 | Emergency (ER) | payer OTHER ==
[~2016-12-04] VITALS: Ht 152.4 cm; Wt 52.5 kg
[2016-12-04 15:36] VITALS: BP 116/44
== END 2016-12-04 15:37 ==
LOC: EME 14:47
DX: T82.868A Thrombosis due to vascular prosthetic devices, implants and grafts, initial encounter (principal); I11.0 Hypertensive heart disease with heart failure; I50.9 Heart failure, unspecified; Y83.2 Surgical operation with anastomosis, bypass or graft as the cause of abnormal reaction of the patient, or of later complication, without mention of misadventure at the time of the procedure; E11.9 Type 2 diabetes mellitus without complications; E78.5 Hyperlipidemia, unspecified; J44.9 Chronic obstructive pulmonary disease, unspecified; Z86.73 Personal history of transient ischemic attack (TIA), and cerebral infarction without residual deficits; Z87.891 Personal history of nicotine dependence; K21.9 Gastro-esophageal reflux disease without esophagitis; F32.9 Major depressive disorder, single episode, unspecified; Z88.1 Allergy status to other antibiotic agents; Z88.6 Allergy status to analgesic agent; Z91.041 Radiographic dye allergy status; Z79.84 Long term (current) use of oral hypoglycemic drugs
CPT/HCPCS: 99281; 99284

== ENCOUNTER → 2016-12-04 | Day surgery (SDC) | payer OTHER ==
[~2016-12-04] MED LIST changes: +GLUCAGEN1 MG IM; +GLUCOSE GEL15 GM PO; +OXYCODONE HCL10 MG PO; +PRILOSEC OTC20 MG PO; +ZOLOFT50 MG PO
[2016-12-04 16:35] LABS: POINT-OF-CARE METER ID UU13113696
== END ==
LOC: CATH 15:30
PROVIDERS: Surgery
DX: T82.858A Stenosis of other vascular prosthetic devices, implants and grafts, initial encounter (principal); I95.81 Postprocedural hypotension; R00.1 Bradycardia, unspecified; I12.0 Hypertensive chronic kidney disease with stage 5 chronic kidney disease or end stage renal disease; E11.22 Type 2 diabetes mellitus with diabetic chronic kidney disease; N18.6 End stage renal disease; Z99.2 Dependence on renal dialysis; J44.9 Chronic obstructive pulmonary disease, unspecified; Y83.2 Surgical operation with anastomosis, bypass or graft as the cause of abnormal reaction of the patient, or of later complication, without mention of misadventure at the time of the procedure
CPT/HCPCS: 82948; C1725; C1769; C1894; J1644; S0020